=== PATIENT | male | born 1945 | race Caucasian/White ===

== ENCOUNTER → 2017-07-21 | Outpatient (CLI) | payer MEDICARE ==
[~2017-07-21] MED LIST: IOPAMIDOL 370 MG/ML 200 ML INFUS..BTL INJ ONE; SODIUM CHLORIDE 0.9% 50ML 0 ML ONE; SODIUM CHLORIDE 0.9% 50ML 50 ML ONE
[2017-07-21 08:25] LABS: BLOOD UREA NITROGEN 13 mg/dL (7-26); BUN/CREATININE RATIO 17 (6-25); CREATININE, SERUM 0.75 mg/dL (0.72-1.25); EST GLOMERULAR FILTRATION RATE > 60 ML/MIN (60-)
--- NOTE | 2017-07-21 09:35 | Diagnostic Imaging Report ---
PROCEDURE: CT scan of the chest WITH intravenous contrast, using standard protocol. TECHNIQUE: The chest was scanned utilizing a multidetector helical scanner from the lung apex through the level of the adrenal glands after the IV administration of 100 cc of Isovue 370. Coronal and sagittal multiplanar reformations were obtained. COMPARISON: None. INDICATIONS: LUNG INFILTRATE, WEIGHT LOSS FINDINGS: Lines/tubes: None. Lungs and Airways: Marked biapical bronchiectasis with fibrocalcific pleural-parenchymal changes. The lungs are hyperinflated in keeping with emphysema. Bandlike opacity with architectural distortion in the right lower lobe measures approximately 5.6 cm oblique transverse by 1.7 cm oblique AP (series 3 image 93). Internal punctate calcifications for example on series 2 image 93.. Less extensive reticular and groundglass opacities, also with architectural distortion, in the left lung base. Right greater than left lower lobe bronchiectasis. Pleura: The pleural spaces are clear. Heart and mediastinum: Thyroid gland is normal. Mediastinal lymph nodes are increased in number though not enlarged by CT criteria. No axillary lymphadenopathy or hilar lymphadenopathy. Mild ectasia of the ascending thoracic aorta (3.9 cm at the sinuses of Valsalva).. Pulmonary outflow tract is of normal caliber. No central pulmonary embolus. Great vessel origins are normal in caliber and configuration. No significant pericardial effusion. Soft tissues: No focal soft tissue abnormalities. Abdomen: There is a subcentimeter hypoattenuating lesion in hepatic segment 7, too small to further characterize though likely represent a small cyst. Otherwise no focal hepatic lesion. 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 Calcified splenic granuloma. Visualized portions of the pancreas and adrenal glands are unremarkable. Subcentimeter hypoattenuating lesions in the left kidney too small to further characterize but likely to represent small cysts. Bones: No osseous destructive lesions. Multilevel degenerative disc changes of the lower cervical and thoracic spine. 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 Malignancy is felt to be less likely, though in the absence of prior cross-sectional imaging for comparison, short term followup CT scan of the chest (3 months) is suggested to assess for stability. PET-CT may also be of benefit for further characterization. Biapical fibrocalcific changes with background emphysema. Mild ectasia of the ascending thoracic aorta (3.9 cm). 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 Dictated by: Jonah Case M.D. on 07/21/2017 at 9:35 Electronically approved by: Jonah Case M.D. on 07/21/2017 at 9:35
== END ==
LOC: CT 07:34
PROVIDERS: ATTEND Internal Medicine Critical Care Medicine
DX: R91.8 Other nonspecific abnormal finding of lung field (principal); R63.4 Abnormal weight loss
CPT/HCPCS: 36415; 71260; 82565; 84520; Q9967

== ENCOUNTER → 2017-12-26 | Outpatient (CLI) | payer OTHER ==
[~2017-12-26] MED LIST changes: -SODIUM CHLORIDE 0.9% 50ML 0 ML ONE
[2017-12-26 09:08] LABS: BLOOD UREA NITROGEN 11 mg/dL (7-26); BUN/CREATININE RATIO 11 (6-25); CREATININE, SERUM 0.98 mg/dL (0.72-1.25); EST GLOMERULAR FILTRATION RATE > 60 ML/MIN (60-)
--- NOTE | 2017-12-26 11:13 | Diagnostic Imaging Report ---
EXAMINATION: PA and lateral views of the chest. COMPARISON: None CLINICAL HISTORY: Pneumothorax. DISCUSSION: Lines/tubes: None. Lungs: Apical pleural-parenchymal scarring. No focal consolidation. Pleura: Left apical pneumothorax with approximately 1 cm. Heart and mediastinum: The cardiomediastinal silhouette is normal. Bones and soft tissues: No acute bony abnormalities. IMPRESSION: Left apical pneumothorax. Per technologist known finding from CT. Images not currently available. Signed by: Dr. Ernesto Quispe M.D. on 12/26/2017 11:10 AM
--- NOTE | 2017-12-26 14:48 | Diagnostic Imaging Report ---
PROCEDURE: CT scan of the chest WITH intravenous contrast, using standard protocol. TECHNIQUE: The chest was scanned utilizing a multidetector helical scanner from the lung apex through the level of the adrenal glands after the IV administration of 100 cc of Isovue 370. Coronal and sagittal multiplanar reformations were obtained. Low-dose technique was utilized. DLP: 316.29 mGy-cm COMPARISON: [facility], CT, CT CHEST W, 07/21/2017, 8:55. INDICATIONS: Cough, shortness of breath FINDINGS: Lines/tubes: None. Lungs and Airways: Again noted is the marked biapical bronchiectasis with fibrocalcific pleural-parenchymal changes. Right lower lobe opacity previously described has resolved. Pleura: Small left apical and medial pneumothorax. There is also a basilar anterior component of the pneumothorax in the left lung base. There is a small left pleural effusion. Heart and mediastinum: The thyroid gland is normal. No significant mediastinal, hilar or axillary lymphadenopathy is seen. The heart and pericardium are within normal limits. Thoracic aortic ectasia. Soft tissues: Normal. 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 Fullness in the region of the left adrenal gland is stable. Bones: The visualized bony thorax is within normal limits. IMPRESSION: 1. Small left-sided pneumothorax as described above. 2. Patient is asymptomatic without significant shortness of breath or chest pain. 3. Findings were discussed with Dr. Mccartney. Followup clinical evaluation in [address] is suggested by Dr[address] Mccartney. 4. Baseline chest x-ray was performed on this date with comparison recommended in 24 hours. 5. Resolution of the previously described right lower lobe opacities. 6. Patient was instructed for signs or symptoms to evaluate in case of worsening pneumothorax. Tanner Cervantes D.O. Dictated by: Tanner Cervantes D.O. on 12/26/2017 at 14:55 Electronically approved by: Tanner Cervantes D.O. on 12/26/2017 at 14:55
== END ==
LOC: CT 08:21
PROVIDERS: ATTEND Internal Medicine Critical Care Medicine
DX: R91.8 Other nonspecific abnormal finding of lung field (principal)
CPT/HCPCS: 36415; 71045; 71260; 82565; 84520; Q9967

== ENCOUNTER → 2022-02-23 | Day surgery (SDC) | payer MEDICARE, OTHER ==
[~2022-02-23] MED LIST changes: +BUPIVACAINE 0.25% 30ML SDV ONE; +CRESTOR10 MG PO; +DEXAMETHASONE SOD PHOS INJ 4 MG/ML SDV ONE; +FENTANYL CITRATE/PF 100MCG/2 ML INJ ONE; +HYDROCODONE/APAP 7.5MG-325MG 1 EA TAB ONE; -IOPAMIDOL 370 MG/ML 200 ML INFUS..BTL INJ ONE; +LIDOCAINE HCL 2% LOCAL INJ 5 ML SDV VIAL INJ ONE; +LIDOCAINE HCL/EPINEPHRINE/PF 10 ML VIAL ONE; +MIDAZOLAM HCL 2 MG/2 ML VIAL ONE; +ONDANSETRON HCL INJ 2MG/ML 2ML 2 MG/ML VIAL ONE; +PHENYLEPHRINE HCL 1% 10 MG/ML VIAL ONE; +POVIDONE IODINE 0.05% 0.05 % ML PO ONE; +PROPOFOL IV EMULSION 10 MG/ML 20 ML VIAL ONE; +ROCURONIUM BROMIDE 10 MG/ML 5ML VIAL IV ONE; +SEVOFLURANE INHAL SOLN 250 ML PEN BTL ONE; +SODIUM CHLORIDE 0.9% 100 ML ONE; -SODIUM CHLORIDE 0.9% 50ML 50 ML ONE
[2022-02-23 11:02] LABS: BASOPHILS % 0.6 % (0.0-1.0); EOSINOPHILS # (AUTO) 0.3 (0.0-0.4); HEMATOCRIT 43.6 % (38.2-49.6); HEMOGLOBIN 13.9 g/dL (14.0-18.0); LYMPHOCYTES # (AUTO) 1.5 (1.0-3.2); MEAN CORPUSCULAR HEMOGLOBIN 30.2 pg (28-32); MEAN CORPUSCULAR HGB CONC 31.9 g/dL (31-35); MEAN CORPUSCULAR VOLUME 94.8 fL (81-99); MONOCYTES # (AUTO) 0.4 (0.2-0.8); MONOCYTES % 5.7 % (4.4-11.3); NEUTROPHILS # (AUTO) 4.1 (2.1-6.9); NEUTROPHILS % 65.5 % (38.7-80.0); PLATELET COUNT 285 x10e3/uL (140-360); RED CELL DISTRIBUTION WIDTH 12.7 % (11.7-14.4)
[2022-02-23 11:25] LABS: ANION GAP 14.1 mmol/L (8-16); CALCIUM 9.2 mg/dL (8.4-10.2); CREATININE, SERUM 0.87 mg/dL (0.72-1.25); POTASSIUM 4.1 mmol/L (3.5-5.1)
[2022-02-23 15:35] VITALS: BP 110/54
== END | disposition home or self-care (01) ==
LOC: OR 10:05
PROVIDERS: ATTEND Surgery
DX: K40.90 Unilateral inguinal hernia, without obstruction or gangrene, not specified as recurrent (principal); Z87.891 Personal history of nicotine dependence
CPT/HCPCS: 36415; 71046; 80048; 85025; 88302; 93005; C1781; J1100; J2001; J2250; J2370; J2405; J3010; J7050

== ENCOUNTER 2022-09-14 08:22 | Observation (INO) | payer MEDICARE, OTHER ==
[~2022-09-14] VITALS: Ht 175.3 cm; Wt 56.7 kg
[2022-09-14] VITALS (8 sets, daily range): BP systolic 95–130; BP diastolic 60–70; PULSE 53–73; RESP 16–20; TEMP 97.3–98.3; O2SAT 97–100
[~2022-09-14 08:22] MED LIST changes: -BUPIVACAINE 0.25% 30ML SDV ONE; -DEXAMETHASONE SOD PHOS INJ 4 MG/ML SDV ONE; -FENTANYL CITRATE/PF 100MCG/2 ML INJ ONE; -HYDROCODONE/APAP 7.5MG-325MG 1 EA TAB ONE; -LIDOCAINE HCL 2% LOCAL INJ 5 ML SDV VIAL INJ ONE; -LIDOCAINE HCL/EPINEPHRINE/PF 10 ML VIAL ONE; -MIDAZOLAM HCL 2 MG/2 ML VIAL ONE; -ONDANSETRON HCL INJ 2MG/ML 2ML 2 MG/ML VIAL ONE; -PHENYLEPHRINE HCL 1% 10 MG/ML VIAL ONE; -POVIDONE IODINE 0.05% 0.05 % ML PO ONE; -PROPOFOL IV EMULSION 10 MG/ML 20 ML VIAL ONE; -ROCURONIUM BROMIDE 10 MG/ML 5ML VIAL IV ONE; -SEVOFLURANE INHAL SOLN 250 ML PEN BTL ONE; -SODIUM CHLORIDE 0.9% 100 ML ONE
[2022-09-14 08:40] LABS: BASOPHILS # (AUTO) 0.1 (0.0-0.1); BASOPHILS % 0.8 % (0.0-1.0); EOSINOPHILS # (AUTO) 0.3 (0.0-0.4); EOSINOPHILS % 4.2 % (0.0-6.0); HEMATOCRIT 39.5 % (38.2-49.6); HEMOGLOBIN 13.7 g/dL (14.0-18.0); LYMPHOCYTES # (AUTO) 1.9 (1.0-3.2); LYMPHOCYTES % 29.7 % (18.0-39.1); MEAN CORPUSCULAR HEMOGLOBIN 30.9 pg (28-32); MEAN CORPUSCULAR HGB CONC 34.7 g/dL (31-35); MEAN CORPUSCULAR VOLUME 89.2 fL (81-99); MONOCYTES # (AUTO) 0.5 (0.2-0.8); MONOCYTES % 7.6 % (4.4-11.3); NEUTROPHILS # (AUTO) 3.6 (2.1-6.9); NEUTROPHILS % 57.5 % (38.7-80.0); PLATELET COUNT 282 x10e3/uL (140-360); RED BLOOD COUNT 4.43 x10e6/uL (4.3-5.7)
[2022-09-14 08:55] LABS: ALANINE AMINOTRANSFERASE 11 IU/L (0-55); ALBUMIN 4.2 g/dL (3.5-5.0); ALBUMIN/GLOBULIN RATIO 1.4 (0.8-2.0); ALKALINE PHOSPHATASE 69 IU/L (40-150); ANION GAP 12.2 mmol/L (8-16); BLOOD UREA NITROGEN 16 mg/dL (7-26); BUN/CREATININE RATIO 16 (6-25); CALCIUM 9.3 mg/dL (8.4-10.2); CARBON DIOXIDE 25 mmol/L (22-29); CHLORIDE 106 mmol/L (98-107); CREATININE, SERUM 1.03 mg/dL (0.72-1.25); GLUCOSE 117 mg/dL (74-118); POTASSIUM 4.2 mmol/L (3.5-5.1); SODIUM 139 mmol/L (136-145)
[2022-09-14] MEDS ORDERED: ASPIRIN 81 MG CHEW TAB PO ONE ×2 (09:45→19:15)
[2022-09-15] VITALS (10 sets, daily range): BP systolic 99–143; BP diastolic 51–97; PULSE 53–95; RESP 15–19; TEMP 97.2–98.2; O2SAT 93–100
[2022-09-15 06:19] LABS: BASOPHILS % 0.6 % (0.0-1.0); EOSINOPHILS # (AUTO) 0.3 (0.0-0.4); EOSINOPHILS % 5.5 % (0.0-6.0); HEMATOCRIT 36.6 % (38.2-49.6); HEMOGLOBIN 12.4 g/dL (14.0-18.0); LYMPHOCYTES # (AUTO) 1.4 (1.0-3.2); LYMPHOCYTES % 27.3 % (18.0-39.1); MEAN CORPUSCULAR HEMOGLOBIN 30.9 pg (28-32); MEAN CORPUSCULAR HGB CONC 33.9 g/dL (31-35); MEAN CORPUSCULAR VOLUME 91.3 fL (81-99); MONOCYTES # (AUTO) 0.3 (0.2-0.8); MONOCYTES % 6.3 % (4.4-11.3); NEUTROPHILS # (AUTO) 3.1 (2.1-6.9); NEUTROPHILS % 60.3 % (38.7-80.0); PLATELET COUNT 256 x10e3/uL (140-360); RED BLOOD COUNT 4.01 x10e6/uL (4.3-5.7); RED CELL DISTRIBUTION WIDTH 13.1 % (11.7-14.4)
[2022-09-15 06:37] LABS: ANION GAP 9.8 mmol/L (8-16); CALCIUM 8.6 mg/dL (8.4-10.2); CREATININE, SERUM 0.84 mg/dL (0.72-1.25); POTASSIUM 3.8 mmol/L (3.5-5.1)
[2022-09-15 06:52] LABS: CREATINE KINASE 79 IU/L (30-200)
[2022-09-15] MEDS ORDERED: ACETAMINOPHEN 325 MG TAB PO PRN (10:00)
[2022-09-15] MEDS ORDERED: ONDANSETRON HCL 4 MG ORAL DISINTEGRATING TAB PO PRN (10:00)
[2022-09-15] MEDS: GABAPENTIN 100 MG CAP PO SCH ×3 (11:58→21:01)
[2022-09-15] MEDS ORDERED: CRESTOR 10MG PO SCH (21:00)
[2022-09-16 01:05] VITALS: BP 104/64; PULSE 53; RESP 16; TEMP 97.2; O2SAT 98
[2022-09-16 01:40] VITALS: BP 104/64; PULSE 53; RESP 16; TEMP 97.2; O2SAT 98
[2022-09-16 05:20] VITALS: BP 94/59; PULSE 57; RESP 16; TEMP 97.5; O2SAT 98
[2022-09-16 08:29] VITALS: BP 95/63; PULSE 61; RESP 16; TEMP 98.1; O2SAT 100
[2022-09-16 09:00] VITALS: BP 95/63; PULSE 61; RESP 16; TEMP 98.1; O2SAT 100
[2022-09-16] MEDS: GABAPENTIN 100 MG CAP PO SCH (09:38)
[2022-09-16 12:10] VITALS: BP 137/73; PULSE 68; RESP 18; TEMP 97.8; O2SAT 100
== END 2022-09-16 12:51 | disposition home or self-care (01) ==
LOC: ER 08:25 → ERHOLD 09:45 → MED/SURG2 11:34
PROVIDERS: ADMIT Internal Medicine; ATTEND Internal Medicine
DX: M48.02 Spinal stenosis, cervical region (principal); J43.9 Emphysema, unspecified; E78.5 Hyperlipidemia, unspecified
CPT/HCPCS: 0223U; 36415 ×2; 71045; 71250; 72141; 80048; 80053; 82550; 84484 ×2; 85025 ×2; 93005; 93306; 93880; 94799 ×2; 99284; G0378 ×3

== ENCOUNTER 2022-09-21 06:39 | Observation (INO) | payer MEDICARE, OTHER ==
[~2022-09-21] VITALS: Ht 175.3 cm; Wt 54.9 kg
[2022-09-21 07:51] LABS: BASOPHILS # (AUTO) 0.1 (0.0-0.1); BASOPHILS % 0.7 % (0.0-1.0); EOSINOPHILS # (AUTO) 0.3 (0.0-0.4); EOSINOPHILS % 3.8 % (0.0-6.0); HEMATOCRIT 41.8 % (38.2-49.6); HEMOGLOBIN 14.4 g/dL (14.0-18.0); LYMPHOCYTES # (AUTO) 2.2 (1.0-3.2); LYMPHOCYTES % 30.4 % (18.0-39.1); MEAN CORPUSCULAR HEMOGLOBIN 31.2 pg (28-32); MEAN CORPUSCULAR HGB CONC 34.4 g/dL (31-35); MEAN CORPUSCULAR VOLUME 90.5 fL (81-99); MONOCYTES # (AUTO) 0.5 (0.2-0.8); MONOCYTES % 6.8 % (4.4-11.3); NEUTROPHILS # (AUTO) 4.3 (2.1-6.9); NEUTROPHILS % 57.6 % (38.7-80.0); PLATELET COUNT 262 x10e3/uL (140-360); RED BLOOD COUNT 4.62 x10e6/uL (4.3-5.7); RED CELL DISTRIBUTION WIDTH 13.1 % (11.7-14.4)
[2022-09-21 08:03] LABS: INR 0.88; PROTHROMBIN TIME 12.4 seconds (11.9-14.5)
[2022-09-21 08:04] LABS: PARTIAL THROMBOPLASTIN TIME 31.6 seconds (23.8-35.5)
[2022-09-21 08:22] LABS: ALBUMIN 4.6 g/dL (3.5-5.0); ALBUMIN/GLOBULIN RATIO 1.4 (0.8-2.0); ANION GAP 16.2 mmol/L (8-16); CALCIUM 9.7 mg/dL (8.4-10.2); CREATININE, SERUM 0.89 mg/dL (0.72-1.25); MAGNESIUM 2.2 MG/DL (1.3-2.1); POTASSIUM 4.2 mmol/L (3.5-5.1)
[2022-09-21 15:38] VITALS: BP 123/78; PULSE 66; RESP 18; TEMP 97.9; O2SAT 99
[2022-09-21] MEDS ORDERED: CELECOXIB100 MG PO (15:38)
[2022-09-21] MEDS ORDERED: GABAPENTIN100 MG PO (15:38)
[2022-09-21 15:56] VITALS: BP 123/78; PULSE 66; RESP 18; TEMP 97.9; O2SAT 99
[2022-09-21 16:03] VITALS: BP 123/78; PULSE 66; RESP 18; TEMP 97.9; O2SAT 99
[2022-09-21] MEDS ORDERED: DEXAMETHASONE SOD PHOS INJ 4 MG/ML SDV IV ONE (18:00)
[2022-09-21 20:38] VITALS: BP 128/77; PULSE 68; RESP 18; TEMP 97.6; O2SAT 100
[2022-09-21] MEDS ORDERED: Morphine 4mg INJECTION 4 MG/ML INJ IV PRN (23:30)
[2022-09-21] MEDS ORDERED: KETOROLAC TROMETHAMINE 30 MG/ML VIAL IV PRN (23:30)
[2022-09-21] MEDS ORDERED: HYDRALAZINE HCL 20 MG/ML VIAL IV PRN (23:30)
[2022-09-22] VITALS (10 sets, daily range): BP systolic 107–140; BP diastolic 65–79; PULSE 58–72; RESP 17–21; TEMP 97.4–97.9; O2SAT 98–100
[2022-09-22] MEDS ORDERED: ACETAMINOPHEN 1000 MG/100 ML 100 ML IV ONE (06:55)
[2022-09-22] MEDS ORDERED: SUGAMMADEX SODIUM 200 MG/2 ML VIAL IV ONE (06:55)
[2022-09-22] MEDS ORDERED: Vancomycin IV 1 GM VIAL ONE (06:59)
[2022-09-22] MEDS ORDERED: THROMBIN FOR SOLN 5,000 UNIT VIAL ONE (06:59)
[2022-09-22] MEDS ORDERED: Vancomycin IV 0 MG ONE (06:59)
[2022-09-22] MEDS ORDERED: BUPIVACAINE 0.5%/EPI 30 ML SDV INJ ONE (06:59)
[2022-09-22] MEDS ORDERED: SIMVASTATIN 20 MG TAB PO SCH (09:00)
[2022-09-22] MEDS ORDERED: SIMVASTATIN 40 MG TAB PO SCH (09:00)
[2022-09-22] MEDS ORDERED: MAGNESIUM/ALUMINUM/SIMETHICONE 30 ML UDC PO PRN (11:00)
[2022-09-22] MEDS ORDERED: CARISOPRODOL 350 MG TAB PO PRN (11:00)
[2022-09-22] MEDS ORDERED: OXYCODONE/ACETAMINOPHEN 5-325 1 EACH TABLET PO PRN (11:00)
[2022-09-22] MEDS ORDERED: MORPHINE SULFATE 5 MG/ML VIAL IM PRN (11:00)
[2022-09-22] MEDS ORDERED: ZOLPIDEM TARTRATE 5 MG TAB PO PRN (11:00)
[2022-09-22] MEDS ORDERED: HYDROMORPHONE 2MG/ML 2 MG/ML ML IV PRN (11:00)
[2022-09-22] MEDS ORDERED: ACETAMINOPHEN 325 MG TAB PO PRN (11:00)
[2022-09-22] MEDS ORDERED: HYDROCODON-ACE1 EA12 PO (11:00)
[2022-09-22] MEDS ORDERED: ONDANSETRON HCL INJ 2MG/ML 2ML 2 MG/ML VIAL IV PRN (11:00)
[2022-09-22] MEDS: LACTATED RINGER'S 1,000 ML IV SCH ×2 (11:00→19:20)
[2022-09-22] MEDS ORDERED: PROMETHAZINE HCL (IM) 25 MG/ML VIAL IM PRN (11:00)
[2022-09-22] MEDS ORDERED: FENTANYL CITRATE/PF 100MCG/2 ML INJ ONE ×2 (11:34→13:32)
[2022-09-22] MEDS ORDERED: PHENYLEPHRINE HCL 1% 10 MG/ML VIAL ONE (12:33)
[2022-09-22] MEDS ORDERED: DEXAMETHASONE SOD PHOS INJ 4 MG/ML SDV ONE (12:33)
[2022-09-22] MEDS ORDERED: SEVOFLURANE INHAL SOLN 250 ML PEN BTL ONE (12:33)
[2022-09-22] MEDS ORDERED: PROPOFOL IV EMULSION 10 MG/ML 20 ML VIAL ONE (12:33)
[2022-09-22] MEDS ORDERED: LIDOCAINE HCL 2% LOCAL INJ 5 ML SDV VIAL INJ ONE (12:33)
[2022-09-22] MEDS ORDERED: POVIDONE IODINE 0.05% 0.05 % ML PO ONE (12:33)
[2022-09-22] MEDS ORDERED: ROCURONIUM BROMIDE 10 MG/ML 5ML VIAL IV ONE (12:33)
[2022-09-22] MEDS ORDERED: ONDANSETRON HCL INJ 2MG/ML 2ML 2 MG/ML VIAL ONE (12:33)
[2022-09-22] MEDS ORDERED: ACETAMINOPHEN 1000 MG/100 ML IV ONE (12:33)
[2022-09-22] MEDS ORDERED: SODIUM CHLORIDE 0.9% 250ML 250 ML ONE (17:23)
[2022-09-23 00:15] VITALS: BP 103/58; PULSE 57; RESP 17; TEMP 97.6; O2SAT 99
[2022-09-23] MEDS: LACTATED RINGER'S 1,000 ML IV SCH (03:40)
[2022-09-23 04:34] VITALS: BP 108/72; PULSE 75; RESP 18; TEMP 98.5; O2SAT 97
[2022-09-23 07:59] VITALS: BP 117/66; PULSE 63; RESP 18; TEMP 98.4; O2SAT 100
[2022-09-23 08:54] VITALS: BP 117/66; PULSE 63; RESP 18; TEMP 98.4; O2SAT 100
[2022-09-23 09:04] VITALS: BP 117/66; PULSE 63; RESP 18; TEMP 98.4; O2SAT 100
== END 2022-09-23 11:10 | disposition home or self-care (01) ==
LOC: ER 06:46 → ERHOLD 07:52 → INTOOBSV 07:52 → MED/SURG3 14:55
PROVIDERS: ADMIT Internal Medicine; ATTEND Internal Medicine
DX: M50.01 Cervical disc disorder with myelopathy, high cervical region (principal); M48.52XA Collapsed vertebra, not elsewhere classified, cervical region, initial encounter for fracture; E78.5 Hyperlipidemia, unspecified; I10 Essential (primary) hypertension; Z20.822 Contact with and (suspected) exposure to COVID-19; Z79.899 Other long term (current) drug therapy; Z87.891 Personal history of nicotine dependence
CPT/HCPCS: 20931; 22551; 22845; 36415; 72040; 76000; 80053; 83735; 85025; 85610; 85730; 88304; 88311; 99284; C1713 ×2; C9113 ×2; G0378 ×3; J0131; J0690 ×2; J1100 ×2; J2001; J2370; J2405; J2704; J3010; J3370; J7050; U0002

== ENCOUNTER → 2022-10-20 | Outpatient (CLI) | payer OTHER ==
[~2022-10-20] MED LIST changes: +CELECOXIB100 MG PO; +GABAPENTIN100 MG PO; +HYDROCODON-ACE1 EA12 PO
== END ==
LOC: CT 10:38
PROVIDERS: ATTEND Otolaryngology
DX: J32.9 Chronic sinusitis, unspecified (principal)
CPT/HCPCS: 70486

== ENCOUNTER → 2022-10-20 | Outpatient (CLI) | payer OTHER | LOC: RAD 10:59 | PROVIDERS: ATTEND Neurological Surgery | DX: M50.21 Other cervical disc displacement, high cervical region (principal); M50.322 Other cervical disc degeneration at C5-C6 level | CPT/HCPCS: 72050 ==